=== PATIENT | female | born 1955 | race Caucasian/White ===

== ENCOUNTER 2016-06-20 13:16 | Outpatient (CLI) | payer BC | END 2016-06-20 23:59 | DX: J45.901 Unspecified asthma with (acute) exacerbation (principal); Z79.899 Other long term (current) drug therapy; Z72.89 Other problems related to lifestyle ==

== ENCOUNTER 2019-11-25 11:56 | Day surgery (SDC) | payer MEDICARE, OTHER ==
[2019-11-25] MEDS ORDERED: LACTATED RINGERS 1,000 ML IV ONE (11:57)
[2019-11-25] MEDS ORDERED: MIDAZOLAM 2 MG/2 ML VIAL IVP ONE (11:57)
[2019-11-25] MEDS ORDERED: fentaNYL 250 MCG/5 ML VIAL IVP ONE (11:57)
[2019-11-25 15:13] VITALS: BP 97/62
== END 2019-11-25 11:57 | disposition home or self-care (01) ==
LOC: SDS 11:56
PROVIDERS: ATTEND Surgery
PROC: 0DBN8ZZ Excision of Sigmoid Colon, Via Natural or Artificial Opening Endoscopic (ICD-10-PCS; principal; 2019-11-25 13:30)
DX: Z12.11 Encounter for screening for malignant neoplasm of colon (principal); K63.5 Polyp of colon; K64.8 Other hemorrhoids; Q43.8 Other specified congenital malformations of intestine
CPT/HCPCS: 45380; J3010; J7120

== ENCOUNTER 2020-03-09 16:46 | Outpatient (CLI) | payer MEDICARE | END 2020-03-09 16:47 | disposition home or self-care (01) | LOC: COV 16:46 | PROVIDERS: ATTEND Family Medicine | DX: R05 Cough (principal); R06.02 Shortness of breath; R53.83 Other fatigue; R68.83 Chills (without fever); J02.9 Acute pharyngitis, unspecified; R19.7 Diarrhea, unspecified; R09.81 Nasal congestion; Z20.828 Contact with and (suspected) exposure to other viral communicable diseases ==

== ENCOUNTER 2021-10-02 08:22 | Outpatient (CLI) | payer MEDICARE | END 2021-10-02 08:23 | disposition home or self-care (01) | LOC: NS 08:22 | PROVIDERS: ATTEND Nurse Practitioner Family | DX: Z71.3 Dietary counseling and surveillance (principal); K21.9 Gastro-esophageal reflux disease without esophagitis | CPT/HCPCS: 97802 ==